=== PATIENT | male | born 1965 | race Caucasian/White ===

== ENCOUNTER 2016-12-28 01:57 | Observation (INO) | payer OTHER ==
--- NOTE | 2016-12-28 02:23 | ED ---
Alcohol HPI - General Chief Complaint: Alcohol Stated Complaint: ETOH Time Seen by Provider: 12/28/16 01:57 Source: patient, police, EMS, RN notes reviewed Mode of arrival: EMS Limitations: no limitations - History of Present Illness Initial Comments: This is a 51-year-old male who is brought in by EMS and police for alcohol intoxication. Patient is to drinking 2/5 of liquor tonight he apparently became combative and was brought in in handcuffs. He denies any suicidal thought or ideation. No trauma is reported patient denies any trauma. MD Complaint: alcohol intoxication Review of Systems ROS Statement: Those systems with pertinent positive or pertinent negative responses have been documented in the HPI. ROS Other: All systems not noted in ROS Statement are negative. Past Medical History Past Medical History: Unable to Obtain Past Surgical History: Unable to Obtain Past Psychological History: No Psychological Hx Reported Smoking Status: Current every day smoker Past Alcohol Use History: Daily Past Drug Use History: None Reported General Exam - General Exam Comments Initial Comments: This is a well-developed well-nourished awake alert male with a smell of alcohol conjoiners on his breath Limitations: no limitations General appearance: alert, lethargic Head exam: Present: atraumatic, normocephalic, normal inspection Eye exam: Present: normal appearance, PERRL, EOMI. Absent: scleral icterus, conjunctival injection, periorbital swelling ENT exam: Present: normal exam, mucous membranes moist Neck exam: Present: normal inspection. Absent: tenderness, meningismus, lymphadenopathy Respiratory exam: Present: normal lung sounds bilaterally. Absent: respiratory distress, wheezes, rales, rhonchi, stridor Cardiovascular Exam: Present: regular rate, normal rhythm, normal heart sounds. Absent: systolic murmur, diastolic murmur, rubs, gallop, clicks GI/Abdominal exam: Present: soft, normal bowel sounds. Absent: distended, tenderness, guarding, rebound, rigid Extremities exam: Present: normal inspection, full ROM, normal capillary refill. Absent: tenderness, pedal edema, joint swelling, calf tenderness Back exam: Present: normal inspection Neurological exam: Present: alert, oriented X3, CN II-XII intact Psychiatric exam: Present: normal affect, normal mood Skin exam: Present: warm, dry, intact, normal color. Absent: rash Course Vital Signs 12/28/16 01:59 Temperature 97.1 F L Pulse Rate 94 Respiratory 16 Rate Blood Pressure 116/73 O2 Sat by Pulse 94 L Oximetry - Reevaluation(s) Reevaluation #1: 12/28/16 03:09 The patient appears be resting comfortably vital signs are stable his alcohol level is 412. He will be admitted for observation and evaluation of alcohol withdrawal Medical Decision Making - Lab Data Result diagrams: 12/28/16 02:12 Lab Results 12/28/16 Range/Units 02:12 Sodium 142 (137-145) mmol/L Potassium 3.4 L (3.5-5.1) mmol/L Chloride 105 (98-107) mmol/L Carbon Dioxide 22 (22-30) mmol/L Anion Gap 15 mmol/L BUN 11 (9-20) mg/dL Creatinine 0.90 (0.66-1.25) mg/dL Est GFR (MDRD) Af Amer >60 (>60 ml/min/1.73 sqM) Est GFR (MDRD) Non-Af >60 (>60 ml/min/1.73 sqM) Glucose 143 H (74-99) mg/dL Calcium 9.3 (8.4-10.2) mg/dL Magnesium 1.8 (1.6-2.3) mg/dL Total Bilirubin 0.2 (0.2-1.3) mg/dL AST 32 (17-59) U/L ALT 56 (21-72) U/L Alkaline Phosphatase 85 (38-126) U/L Total Protein 6.8 (6.3-8.2) g/dL Albumin 4.2 (3.5-5.0) g/dL Serum Alcohol 412 mg/dL Disposition Clinical Impression: Alcoholic intoxication Disposition: ADMITTED IP TO THIS [facility] Condition: Stable Referrals: None,Stated [Primary Care Provider] - 1-2 days
[2016-12-28 02:36] LABS: ALT 56 U/L (21-72); AST 32 U/L (17-59); Alkaline Phosphatase 85 U/L (38-126); Anion Gap 15 mmol/L; Blood Urea Nitrogen 11 mg/dL (9-20); Calcium 9.3 mg/dL (8.4-10.2); Carbon Dioxide 22 mmol/L (22-30); Chloride 105 mmol/L (98-107); Glucose 143 mg/dL (74-99); Magnesium 1.8 mg/dL (1.6-2.3); Non-African American GFR(MDRD) >60 (>60 ml/min/1.73 sqM); Potassium 3.4 mmol/L (3.5-5.1); Sodium 142 mmol/L (137-145); Total Bilirubin 0.2 mg/dL (0.2-1.3); Total Protein 6.8 g/dL (6.3-8.2)
[2016-12-28 02:48] LABS: Alcohol 412 mg/dL
[2016-12-28] MEDS ORDERED: ONDANSETRON 4 MG/2 ML VIAL IVP PRN (03:10)
[2016-12-28] MEDS ORDERED: NALOXONE 0.4 MG/ML 1 ML VIAL IV PRN (03:10)
[2016-12-28] MEDS ORDERED: LORazepam 2 MG/ML SYRINGE IV PRN ×3 (03:10→03:12)
[2016-12-28] MEDS ORDERED: THIAMINE 100 MG/ML 2 ML VIAL IM STA (03:12)
[2016-12-28] MEDS ORDERED: SODIUM CHLORIDE 0.9% 1,000 ML with MVI, ADULT NO.4 WITH VIT K 10 ML, THIAMINE 100 MG, F... IV ONE ×4 (03:12)
[2016-12-28 03:20] LABS: Basophils % (A) 0 %; CH 33.1; CHCM 35.5; Eosinophils % (A) 1 %; HCT 43.4 % (39.0-53.0); HDW 2.46; HGB 15.3 gm/dL (13.0-17.5); Luc # (Auto) 0.24; Luc % (Auto) 3; Lymphocytes # (A) 2.1 k/uL (1.0-4.8); Lymphocytes % (A) 29 %; MCH 32.9 pg (25.0-35.0); MCHC 35.2 g/dL (31.0-37.0); MCV 93.5 fL (80.0-100.0); Mean Platelet Volume 6.8; Monocytes # (A) 0.4 k/uL (0-1.0); Monocytes % (A) 6 %; Neutrophils # (A) 4.3 k/uL (1.3-7.7); Neutrophils % (A) 61 %; RBC 4.64 m/uL (4.30-5.90); RDW 12.8 % (11.5-15.5); WBC 7.1 k/uL (3.8-10.6); WBC (Perox) 7.11
[2016-12-28 03:26] LABS: Amylase <30 U/L (30-110)
[2016-12-28] MEDS: LORazepam 2 MG/ML SYRINGE IV PRN ×2 (12:28→20:35)
[2016-12-28] MEDS ORDERED: NICOTINE 14MG/24HR PATCH TRANSDERM SCH (14:30)
[2016-12-28] MEDS ORDERED: HYDROcodone/APAP 5-325MG 1 EACH TAB PO PRN (16:27)
[2016-12-28] MEDS ORDERED: TEMAZEPAM 15 MG CAP PO PRN (16:27)
[2016-12-28] MEDS ORDERED: HYDROmorphone 1 MG/ML 1 ML SYRINGE IVP PRN (16:27)
[2016-12-28] MEDS ORDERED: THIAMINE 100 MG TAB PO SCH (17:00)
[2016-12-28 19:31] VITALS: BP 122/67; PULSE 77; RESP 18; TEMP 98.4
[2016-12-28] MEDS ORDERED: HEPARIN SODIUM,PORCINE 5,000 UNIT/ML 1 ML VIAL SQ SCH (21:00)
[2016-12-29] MEDS ORDERED: PANTOPRAZOLE 40 MG TABLET PO SCH (07:30)
--- NOTE | 2016-12-29 14:53 | HP ---
Chief complaints are alcohol intoxication. HISTORY OF PRESENT ILLNESS: This is a 51-year-old gentleman with no significant past medical history, was admitted with alcohol intoxication. The alcohol level was found to be 412 on admission. There is no history of fever, chills or rigors. No history of headache, loss of consciousness. PAST MEDICAL HISTORY: None. Medications prior to admission: None. FAMILY HISTORY: No history of heart disease or strokes in the family. SOCIAL HISTORY: History of smoking, history of alcohol. REVIEW OF SYSTEMS: ENT: No diminished hearing, diminished vision. CARDIOVASCULAR SYSTEM: No angina or palpitation. RESPIRATORY: As mentioned earlier. GI: No nausea. : No dysuria. NERVOUS SYSTEM: No numbness or weakness. ALLERGY/IMMUNOLOGY: No asthma or hayfever. MUSCULOSKELETAL: As mentioned earlier. HEMATOLOGY: As mentioned earlier. ENDOCRINE: No history of diabetes or hypothyroidism. CONSTITUTIONAL: As mentioned earlier. DERMATOLOGY: Negative. PSYCHIATRY: As mentioned earlier. PHYSICAL EXAM: Patient is alert and oriented x3. Pulse is 60, blood pressure 119/70, respirations 12, temperature is 98.4, pulse ox 94% on room air. HEENT: Conjunctivae normal. NECK: No jugular venous distension. CARDIOVASCULAR SYSTEM: S1, S2, muffled. RESPIRATORY: Breath sounds diminished at the bases, a few scattered rhonchi, no crackles. ABDOMEN: Soft, nontender. LEGS: No edema, no swelling. NERVOUS SYSTEM: No focal deficits. LABS: CBC with potassium 3.4, alcohol 412. ASSESSMENT: 1. Acute alcohol intoxication. 2. History of nicotine dependence. 3. History of polysubstance abuse. 4. Hypokalemia. RECOMMENDATION: Recommend to continue with the symptomatic treatment. Continue the CIWA protocol. Will repeat labs in the morning. Further recommendations to follow. MTDD
--- NOTE | 2017-01-05 09:49 | P.DS ---
Providers Date of admission: 12/28/16 03:13 Attending physician: Jeff Marin Consults: 12/28/16 08:11 Consult Physician Routine Consulting Provider: Laura Cox Consult Reason/Comments: pt states he is suicidal Do you want consulting provider notified?: Yes Primary care physician: Stated None Hospital Course: Patient left AMA Patient Condition at Discharge: Stable Plan - Discharge Summary New Discharge Prescriptions: No Action Unable To Assess [Unable to Assess] Discharge Medication List Unable To Assess [Unable to Assess] 12/28/16 [History] Follow up Appointment(s)/Referral(s): None,Stated [Primary Care Provider] - 1-2 days Discharge Disposition: Left Against Medical Advice
== END 2016-12-28 23:31 | disposition left against medical advice (07) ==
LOC: EC 01:57 → 3SUR 03:13 → 3OBS 07:05
PROVIDERS: ADMIT Internal Medicine; ATTEND Internal Medicine
DX: F10.129 Alcohol abuse with intoxication, unspecified (principal); Y90.8 Blood alcohol level of 240 mg/100 ml or more; F19.10 Other psychoactive substance abuse, uncomplicated; F17.200 Nicotine dependence, unspecified, uncomplicated; E87.6 Hypokalemia; Z53.21 Procedure and treatment not carried out due to patient leaving prior to being seen by health care provider; R45.851 Suicidal ideations
CPT/HCPCS: 99285; 96372 ×2; 96374; 96376; 82075; 36415; 80053; 82150; 83690; 83735; 85025; 80320; G0378; S4990; J2060; J3411